=== PATIENT | female | born 1970 | race Caucasian/White ===

== ENCOUNTER 2020-05-31 03:13 | Inpatient (IN) | payer MEDICAID, SELFPAY ==
[2020-05-31] VITALS (10 sets, daily range): BP systolic 118–145; BP diastolic 73–92; PULSE 64–90; RESP 15–18; TEMP 36.4–36.8; O2SAT 95–98; BMI 41.6
--- NOTE | 2020-05-31 04:57 | PC.NURSE ---
Skin assessment: abdominal c section scar, left ankle surgical scar, tattoo left calf.
--- NOTE | 2020-05-31 05:42 | ED_ITS ---
HPI - Psych General: Chief Complaint: Psychiatric Symptoms Stated Complaint: SI D/A Time Seen by Provider: 05/31/20 03:16 History of Present Illness: HPI Narrative: [id number] female presenting as a direct admit accepted by psychiatry to the neuropsychiatric unit. She denies any COVID symptoms. She says that she has a chronic cough from COPD, but has not seen an increase at all. She has had no fever. He does continue to complain of suicidal ideation. MD complaint: suicidal ideation Onset (ago): day(s) History of same: Yes Relieving factors: none Associated symptoms: Reports auditory hallucinations Review of Systems Const: Denies: fever(s) or chills Eyes: Denies: change in vision or blurry vision ENMT: Denies: swelling of lips/tongue, epistaxis, post nasal drip or sinus pain Card: Denies: chest pain or palpitations Resp: Denies: dyspnea, productive cough, non-productive cough or wheezing GI: Denies: abdominal pain, nausea or vomiting : Denies: dysuria or hematuria Musc: Reports: back pain; Denies: neck pain Skin/Breast: Denies: rash, pruritus or erythema Neuro: Denies: headache(s), dizziness or vertigo Psych: Reports: auditory hallucinations; Denies: anxiety Physical Exam Const: GENERAL APPEARANCE: well developed ORIENTATION/CONSCIOUSNESS: Yes oriented to person, Yes oriented to place and Yes oriented to time HENMT: COMMON NORMALS: normocephalic, external ears normal and Normal external nose present HEAD & SCALP: normocephalic FACE & SINUS: normal facial exam NOSE: Normal external nose present and No nasal discharge present EXTERNAL EAR: Yes external ears normal Eye: COMMON NORMALS: Equal, round and reactive pupils present, EOMs intact bilaterally and conjunctivae normal EYELID: eyelids normal CONJUNCTIVA: Yes conjunctivae normal PUPIL: Yes Equal, round and reactive pupils present Neck/C-Spine: GENERAL: No tracheal deviation Chest: COMMONS NORMALS: normal inspection of the chest CHEST: No tenderness Resp: COMMON NORMALS: clear to auscultation bilaterally EFFORT & INSPECTION: No tachypneic, No respiratory distress, No retractions, No uses accessory muscles and No tracheal deviation AUSCULTATION: clear to auscultation bilaterally, no rhonchi, no wheezes and lung sounds not diminished Cardio: COMMON NORMALS: regular rate and regular rhythm RATE: regular rate RHYTHM: regular rhythm HEART SOUNDS: no murmurs PERIPHERAL PULSES: radial pulses present GI: INSPECTION: No abdominal distension AUSCULTATION: No Hyperactive bowel sounds present and No Hypoactive bowel sounds present PALPATION: No Guarding due to palpation present (GI) and No Rigid due to palpation PERCUSSION: no dullness to percussion and no tympanic to percussion Neuro: SENSORIUM/ORIENTATION: Yes oriented to person, Yes oriented to place and Yes oriented to time Psych: COMMON NORMALS: mental status grossly normal Skin: COMMON NORMALS: no rashes or lesions noted GENERAL SKIN EXAM: no rashes or lesions noted MDM - Psych MDM Narrative: Medical decision making narrative: Patient has no active symptoms of COVID-19. She is direct admitted to the neuropsychiatric unit Discharge Plan Discharge Patient Disposition: Admitted As Inpatient Admit Provider: Bipin Galvin Clinical Impression: Depression Qualifiers: Depression Type: major depressive disorder Major depression recurrence: recurrent Active/Remission status: currently active Major depression episode severity: severe Psychotic features: with psychotic features Qualified Code(s): F33.3 - Major depressive disorder, recurrent, severe with psychotic symptoms Condition: Stable Referrals: [facility] in [facility] [Other] - 1-3 days (call for an initial intake. Ask for outpatient mental health services. ) Interventions: ED Discharge Assessment Last Done: 05/31/20 04:02 ED Charges Last Done: 05/31/20 04:02 Discharge Date/Time: 05/31/20 04:03 Coding Level of Care Code ED Varnisher Plasticoater for Pippa Fwd Exam Comprehensive
[2020-05-31] MEDS: pantoprazole DR 40 mg Tablet PO (09:50)
--- NOTE | 2020-05-31 10:59 | P.HP_ITS ---
Providers/Chief Complaint Admitting Physician: Bipin Galvin MD Primary Care Provider: Yasmani Santos Chief Complaint: SI D/A HPI NPU History of Present Illness Alka Iyer is a 50 year old female who presented to [facility] stating that she wanted to blow her brains out if she went home. She reported she did not want to live anymore. She was evaluated in their facility and a request for admission was sent to surrounding hospitals and she was admitted to the neuropsychiatric unit for definitive treatment of these issues. She presents today reporting that this all started yesterday when she flipped out. She reports that she was stressed and she just started losing her mind. She reports that she get her to work which led to her having to have the surgery but after the surgery they did not give her her job back. She reports that she called the [facility] office because she has no income and can't work . She reports that she did a survey with alive respondent was took about 20 minutes and afterwards he said that there is no way to get help her. They reported that she didn't have disability because she was not taking pain medications or seeing doctors more frequently. She reported that she had paperwork documenting her disability but that they did not want to hear her point of view and 7 no seal mixing operator would rule in her favor. She reports that she went to her ex-'s and started crying. She reports that she had a gun in the car and she just started thinking crazy thoughts and called the suicide hotline and that's how she ended up at the hospital. She denies any past psychiatric inpatient stays and she's never been on medication. She reports that her PCP and she had discussed the possibility of starting a medication for anxiety or depression but that never occurred. She reports she's never had a suicide attempt. Psychiatric history: As above. Substance abuse history: She reports that she smokes less than a half a pack of cigarettes a day, she denies alcohol use, she denies marijuana use or any other illicit drug use. She never been to rehabilitation her abdomen DUI. Family history: She denies any significant history of mental health issues in her family but does report that the family had some addiction issues. She reports her dad has had a suicide attempt in the past. Developmental history: She reports that there were no issues with her or delivery. That she learn to walk and talk and motor developmental milestones on time. She reports that she did not need speech therapy, learning support, emotional support special education classes when she went off to school. Psychosocial history: She reports her mother and father were together when she was born but split at a later time. She reportedly had 2 children together she and her younger sister. She reports that her mother had 2 other children and she denied her dad having any other children. She reports her childhood was rough because her mother when she was 8 years old of a reported heart condition. She reports that her father was a shake table operator and he was on the road and was never there for them and she was raised by his parents. She endorsed emotional abuse but denies physical or sexual abuse. She graduated from high school M[employer]. 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 She endorses being heterosexual with a long relationship being 18 years. She's been 3 times and 3 times. She has 2 sons one is in his 20s and the other one is 18. She never the and she reports she believes in God. She reports that she worked for 7 years had a [employer] and on her own [employer] for about 10 years. She currently reports she lives in a house with a roommate. Legal history: She denied going to halfway or having any serious legal issues. Medical history call in She reports she has COPD and nerve damage. Meds NPU Home Medications Medication Instructions Recorded Confirmed Last Taken Type albuterol sulfate [ProAir HFA] 2 puff INHALATION QID PRN MDD 6 05/31/20 05/31/20 Unknown History omeprazole 40 mg PO DAILY MDD 40 05/31/20 05/31/20 Unknown History Allergies Allergy/AdvReac Type Severity Reaction Status Date / Time No Known Allergies Allergy Verified 05/31/20 04:27 Mental Status Exam MSE Comments: This is an obese white female with limited progress and grooming and eye contact. No abnormal movements except for psychomotor retardation cooperative with exam in mild distress. Speech was decreased rate and volume. Mood described as drained, affect congruent and irritable. Thought process organized. Thought content: Patient denied any suicidal or homicidal ideation currently there are no delusions reported as noted, she denied any auditory or visual hallucinations. Attention and concentration were intact and memory appeared reliable but none were formally tested. She is alert and oriented ?3. Insight and judgment are fair and impulse control is limited. Vitals/I&O/Wt Last Vital Signs Temp 97.7 F 05/31/20 06:00 Pulse 71 05/31/20 06:00 Resp 15 05/31/20 06:00 BP 128/74 05/31/20 06:00 Pulse Ox 97 05/31/20 06:00 Weight last 48 hrs Weight 120.656 kg Weight 120.656 kg A&P Assessment and plan (1) Adjustment disorder with mixed disturbance of emotions and conduct: Status: Acute (2) Depression: Status: Acute (3) Anxiety: Status: Acute (4) Unemployment: Status: Acute Additional A&P Information This is a 50-year-old white female with a recent history of significant psychosocial stressors including losing her job, having financial challenges, having dealt with the recent surgery and feeling like she is running out of options and failing a lot of despair. 1. Continue current medications. Except: Start Prozac 20 mg by mouth every morning. 2. Continue every 15 minute checks for safety. 3. Encourage individual, group and milieu therapy. 4. We will evaluate for safety given the 96 hour hold. Involuntary Hold Information 96 Hour Hold: 96 Hour Involuntary Admission: No Attestations NPU Medical Necessity Statement*: Inpatient hospitalization is medically necessary in the clinically appropriate intervention at this time. We will monitor medications and make changes and add medications as indicated. She will be in the hospital for over to midnight. Likely length of stay 4-6 days. Coding Level of Care Code Acute Technician Biological Health for Pippa Fwd Diagnoses Adjustment disorder with mixed disturbance of emotions and conduct F43.25 Depression F32.9 Anxiety F41.9 Unemployment Z56.0
[2020-05-31] MEDS: fluoxetine 20 mg Capsule PO (13:10)
[2020-05-31] MEDS: albuterol 8 gm MDI 2 PUFF INHALATION ×2 (15:35→21:55)
[2020-05-31] MEDS: acetaminophen 325 mg Tablet 650 MG PO (21:47)
[2020-06-01 06:00] VITALS: BP 135/94; PULSE 86; RESP 19; TEMP 36.6; O2SAT 96
[2020-06-01] MEDS: fluoxetine 20 mg Capsule PO (07:31)
[2020-06-01] MEDS: pantoprazole DR 40 mg Tablet PO (07:31)
--- NOTE | 2020-06-01 12:10 | PM.NPN ---
Subjective NPU Subjective: Interval history: Alka presented today reporting that she is doing well and denying any major challenges. She reports that she is tolerating the medication all right and feels a little bit better. Reports this is anxious about making sure she is able to go to her appointment on Wednesday because of how long it took her to gain that appointment. We discussed the risk benefits and alternatives of planning for discharge on Wednesday and she understood and agreed to proceed as is documented in this note. Mental Status Exam MSE Comments: This is an obese white female with adequate dress, grooming and eye contact. No abnormal movements except for psychomotor retardation. cooperative with exam in mild distress. Speech was decreased rate and volume. Mood described as okay, a little better, affect congruent and irritable. Thought process organized. Thought content: Patient denied any suicidal or homicidal ideation currently there are no delusions reported as noted, she denied any auditory or visual hallucinations. Attention and concentration were intact and memory appeared reliable but none were formally tested. She is alert and oriented ?3. Insight and judgment are fair and impulse control is limited. Vitals/I&O/Wt Last Vital Signs Temp 98.2 F 05/31/20 22:00 Pulse 87 05/31/20 22:01 Resp 18 05/31/20 22:00 BP 133/90 05/31/20 22:00 Pulse Ox 98 05/31/20 22:00 Weight last 48 hrs Weight 120.656 kg Weight 120.656 kg A&P Additional A&P Information (1) Adjustment disorder with mixed disturbance of emotions and conduct: (2) Depression: (3) Anxiety: (4) Unemployment: This is a 50-year-old white female with a recent history of significant psychosocial stressors including losing her job, having financial challenges, having dealt with the recent surgery and feeling like she is running out of options and failing a lot of despair. 1. Continue current medications. 2. Continue every 15 minute checks for safety. 3. Encourage individual, group and milieu therapy. 4. We will evaluate for safety given the 96 hour hold. Involuntary Hold Information 96 Hour Hold: 96 Hour Involuntary Admission: No Attestations NPU Medical Necessity Statement*: Inpatient hospitalization is medically necessary in the clinically appropriate intervention at this time. We will monitor medications and make changes and add medications as indicated. Likely length of stay 2-4 days. Coding Level of Care Code Acute Molder Machine for Chg Fwd
[2020-06-01 14:00] VITALS: BP 112/89; PULSE 88; RESP 18; TEMP 36.9
[2020-06-01] MEDS: acetaminophen 325 mg Tablet 650 MG PO (21:14)
[2020-06-01] MEDS: hyDROXYzine 25 mg Capsule 50 MG PO (21:15)
[2020-06-01 21:20] VITALS: BP 129/89; PULSE 89; RESP 18; TEMP 37; O2SAT 96
--- NOTE | 2020-06-01 23:57 | PC.NURSE ---
PRN VISTARIL ADMINISTERED VISTARIL 50MG FOR PT C/O OF ANXIETY. WILL MONITOR FOR MEDICATION EFFECTIVENESS.
[2020-06-02 06:00] VITALS: BP 116/75; PULSE 68; RESP 17; TEMP 36.6; O2SAT 94
[2020-06-02] MEDS: pantoprazole DR 40 mg Tablet PO (08:26)
[2020-06-02] MEDS: fluoxetine 20 mg Capsule PO (08:26)
--- NOTE | 2020-06-02 11:14 | P.PN_ITS ---
Subjective NPU Subjective: Interval history: Alka presents today reporting that she feels the medication is working well. She has some anxiety about her appointment tomorrow and so I reassured her that we will be able to assist her and getting to the appointment in a timely fashion. She endorsed a plan to get someone to come pick her up and I assured her we would have her discharge and everything in place so that she can get to her appointment. She reports that she is feeling better, and eating and sleeping better with the trazodone. Mental Status Exam MSE Comments: This is an obese white female with adequate dress, grooming and eye contact. No abnormal movements except for psychomotor retardation. cooperative with exam no acute distress. Speech was more normal rate and volume. Mood described as better, affect congruent. Thought process organized. Thought content: Patient denied any suicidal or homicidal ideation, there are no delusions reported as noted, she denied any auditory or visual hallucinations. Attention and concentration were intact and memory appeared reliable but none were formally tested. She is alert and oriented ?3. Insight and judgment are fair and impulse control is improving. Vitals/I&O/Wt Last Vital Signs Temp 97.9 F 06/02/20 06:00 Pulse 68 06/02/20 06:00 Resp 17 06/02/20 06:00 BP 116/75 06/02/20 06:00 Pulse Ox 94 06/02/20 06:00 Weight last 48 hrs Weight 120.656 kg A&P Additional A&P Information (1) Adjustment disorder with mixed disturbance of emotions and conduct: (2) Depression: (3) Anxiety: (4) Unemployment: This is a 50-year-old white female with a recent history of significant psychosocial stressors including losing her job, having financial challenges, having dealt with the recent surgery and feeling like she is running out of options and failing a lot of despair. 1. Continue current medications. 2. Continue every 15 minute checks for safety. 3. Encourage individual, group and milieu therapy. 4. We will discharge in the morning Involuntary Hold Information 96 Hour Hold: 96 Hour Involuntary Admission: No Attestations NPU Medical Necessity Statement*: Inpatient hospitalization is medically necessary in the clinically appropriate intervention at this time. We will monitor medications and make changes and add medications as indicated. Likely length of stay 1-3 days. Tentative plan for discharge in the morning. Coding Level of Care Code Acute Final Installer Inspector for Pippa Oshea
[2020-06-02 13:14] VITALS: BP 123/84; PULSE 81; RESP 18; TEMP 36.4; O2SAT 97
[2020-06-02] MEDS: hyDROXYzine 25 mg Capsule 50 MG PO (20:30)
[2020-06-02] MEDS: trazodone 50 mg Tablet PO (20:31)
[2020-06-02] MEDS: acetaminophen 325 mg Tablet 650 MG PO (20:31)
[2020-06-02 20:36] VITALS: BP 122/83; PULSE 67; RESP 15; TEMP 36.6; O2SAT 97
--- NOTE | 2020-06-02 21:27 | PC.NURSE ---
Pt given tylenol for shoulder pain, trazodone for sleep and vistaril for anxiety per pt request.
[2020-06-03 05:54] VITALS: BP 122/83; PULSE 67; RESP 15; TEMP 36.6; O2SAT 97
[2020-06-03 06:00] VITALS: BP 101/59; PULSE 85; RESP 18; TEMP 36; O2SAT 92
[2020-06-03] MEDS: fluoxetine 20 mg Capsule PO (07:18)
[2020-06-03] MEDS: pantoprazole DR 40 mg Tablet PO (07:18)
[2020-06-03 08:13] VITALS: BP 101/59; PULSE 85; RESP 18; TEMP 36; O2SAT 92
--- NOTE | 2020-06-03 12:08 | P.DS_ITS ---
Diagnoses at Discharge Discharge Diagnosis (1) Adjustment disorder with mixed disturbance of emotions and conduct: Status: Resolved (2) Depression: Status: Chronic Qualifiers: Active/Remission status: currently active Depression Type: major depressive disorder Major depression episode severity: severe Major depression recurrence: recurrent Psychotic features: with psychotic features Qualified Code(s): F33.3 - Major depressive disorder, recurrent, severe with psychotic symptoms (3) Anxiety: Status: Resolved (4) Unemployment: Status: Acute Reason for Visit Reason for Visit: SI D/A Brief History: Alka Iyer is a 50 year old female who presented to [facility] stating that she wanted to blow her brains out if she went home. She reported she did not want to live anymore. She was evaluated in their facility and a request for admission was sent to surrounding hospitals and she was admitted to the neuropsychiatric unit for definitive treatment of these issues. She presents today reporting that this all started yesterday when she flipped out. She reports that she was stressed and she just started losing her mind. She reports that she get her to work which led to her having to have the surgery but after the surgery they did not give her her job back. She reports that [facility] because she has no income and can't work. She reports that she did a survey with alive respondent was took about 20 minutes and afterwards he said that there is no way to get help her. They reported that she didn't have disability because she was not taking pain medications or seeing doctors more frequently. She reported that she had paperwork documenting her disability but that they did not want to hear her point of view and 7 no dielectric press operator would rule in her favor. She reports that she went to her ex-'s and started crying. She reports that she had a gun in the car and she just started thinking crazy thoughts and called the suicide hotline and that's how she ended up at the hospital. She denies any past psychiatric inpatient stays and she's never been on medication. She reports that her PCP and she had discussed the possibility of starting a medication for anxiety or depression but that never occurred. She reports she's never had a suicide attempt. Hospital Course Hospital Course Assessment and plan (1) Adjustment disorder with mixed disturbance of emotions and conduct: Status: Acute (2) Depression: Status: Acute (3) Anxiety: Status: Acute (4) Unemployment: Status: Acute Additional A&P Information This is a 50-year-old white female with a recent history of significant psychosocial stressors including losing her job, having financial challenges, having dealt with the recent surgery and feeling like she is running out of options and failing a lot of despair. 1. Continue current medications. Except: Start Prozac 20 mg by mouth every morning. 2. Continue every 15 minute checks for safety. 3. Encourage individual, group and milieu therapy. 4. We will evaluate for safety given the 96 hour hold. Hospital day #3: Interval history: Alka presented today reporting that she is doing well and denying any major challenges. She reports that she is tolerating the medication all right and feels a little bit better. Reports this is anxious about making sure she is able to go to her appointment on Wednesday because of how long it took her to gain that appointment. We discussed the risk benefits and alternatives of planning for discharge on Wednesday and she understood and agreed to proceed as is documented in this note. This is a 50-year-old white female with a recent history of significant psychosocial stressors including losing her job, having financial challenges, having dealt with the recent surgery and feeling like she is running out of options and failing a lot of despair. 1. Continue current medications. 2. Continue every 15 minute checks for safety. Hospital day #4: Interval history: Alka presents today reporting that she feels the medication is working well. She has some anxiety about her appointment tomorrow and so I reassured her that we will be able to assist her and getting to the appointment in a timely fashion. She endorsed a plan to get someone to come pick her up and I assured her we would have her discharge and everything in place so that she can get to her appointment. She reports that she is feeling better, and eating and sleeping better with the trazodone. 1. Continue current medications. 2. Continue every 15 minute checks for safety. Involuntary Hold Information 96 Hour Hold: 96 Hour Involuntary Admission: No Mental Status Exam MSE Comments: This is an obese white female with adequate dress, grooming and eye contact. No abnormal movements except for psychomotor retardation. cooperative with exam no acute distress. Speech was more normal rate and volume. Mood described as better, affect congruent. Thought process organized. Thought content: Patient denied any suicidal or homicidal ideation, there are no delusions reported as noted, she denied any auditory or visual hallucinations. Attention and concentration were intact and memory appeared reliable but none were formally tested. She is alert and oriented ?3. Insight and judgment are fair and impulse control is improving. Discharge Data Vitals: Last Vital Signs Temp 96.8 F L 06/03/20 08:13 Pulse 85 06/03/20 08:13 Resp 18 06/03/20 08:13 BP 101/59 06/03/20 08:13 Pulse Ox 92 06/03/20 08:13 Discharge Plan Discharge Patient Disposition: Home Condition: Stable Prescriptions: New trazodone 50 mg Tablet 50 mg PO BEDTIME PRN (Reason: Sleep) 30 Days Qty: 30 RF: 1 fluoxetine 20 mg Capsule 20 mg PO DAILY 30 Days Qty: 30 RF: 0 Continued omeprazole 40 mg capsule,delayed release(DR/EC) 40 mg PO DAILY MDD 40 RF: 0 ProAir HFA 90 mcg/actuation HFA aerosol inhaler 2 puff INHALATION QID MDD 6 PRN (Reason: Shortness Of Breath Or Wheezing) RF: 0 Discharge Orders: Discharge Order (Routine); Ordered 06/03/20 Ordered By: Bipin Galvin Referrals: [facility] in [facility] [Other] - 1-3 days (call for an initial intake. Ask for outpatient mental health services. ) Discharge Diet: Regular Discharge Activity: Resume usual activity Patient Instructions: Fluoxetine (By mouth), Trazodone (By mouth), Depression (DC), Anxiety (DC) Discharge Date/Time: 06/03/20 08:31 Discharge Attestations NPU Time Spent in Discharge Care*: less than 30 min Coding Level of Care Code Acute Internetworking Technician for [facility] Fwd Diagnoses Adjustment disorder with mixed disturbance of emotions and conduct F43.25 Depression F33.3 Active/Remission status: currently active Depression Type: major depressive disorder Major depression episode severity: severe Major depression recurrence: recurrent Psychotic features: with psychotic features Anxiety F41.9 Unemployment Z56.0
== END 2020-06-03 08:31 | disposition home or self-care (01) | DRG 882 ==
LOC: ER 03:28 → NP 03:40
PROVIDERS: Admitting Provider Psychiatry & Neurology Psychiatry; PCP Family Medicine; Visit Provider Psychiatry & Neurology Psychiatry
DX: F43.25 Adjustment disorder with mixed disturbance of emotions and conduct (principal); R45.851 Suicidal ideations; F33.3 Major depressive disorder, recurrent, severe with psychotic symptoms; F41.9 Anxiety disorder, unspecified; F17.210 Nicotine dependence, cigarettes, uncomplicated
CPT/HCPCS: 12345; 94640; 99284; J3535